=== PATIENT | male | born 1960 | race African-American/Black ===

== ENCOUNTER 2025-06-17 08:32 | Inpatient (IN) | payer OTHER ==
[2025-06-17] MEDS ORDERED: Nitroglycerin 2% Ointment 1 INCH/1 GM Packet ONE (08:54)
[2025-06-17] MEDS ORDERED: Magnesium 2 GM/50 ML BAG (IN WATER) ONE (08:54)
[2025-06-17] MEDS ORDERED: Aspirin Chewable 81 MG TAB ONE (08:54)
[2025-06-17 09:04] LABS: #Basophils 0.05 10x3/uL (0.0-0.2); #Eosinophils 0.23 10x3/uL (0.0-0.7); #Monocytes 0.69 10x3/uL (0.11-0.59); #Neutrophils 2.72 10x3/uL (1.40-6.50); %Basophils 0.8 % (0.0-1.0); %Eosinophils 3.5 % (0.0-10.0); %Lymphocytes 43.6 % (21.0-51.0); %Monocytes 10.5 % (0.0-10.0); %Neutrophils 41.4 % (42.0-75.0); Hematocrit 39.0 % (42.0-52.0); Hemoglobin 12.6 g/dL (14.0-18.0); Mean Corpuscular Hemoglobin 29.3 pg (27.0-31.0); Mean Corpuscular Volume 90.7 fL (78.0-98.0); Platelet Count 206 10x3/uL (130-400); Red Blood Cell (RBC) Count 4.30 mill/uL (4.70-6.10); White Blood Cell (WBC) Count 6.56 10x3/uL (4.8-10.8)
[2025-06-17 09:18] LABS: ALT (SGPT) 15 U/L (Less than 45); AST (SGOT) 31 U/L (11-34); Albumin 3.4 g/dL (3.1-4.5); Alkaline Phosphatase 86 U/L (40-110); Anion Gap 12 mmol/L (10-20); BUN (Urea Nitrogen) 14 mg/dL (8.4-25.7); Bilirubin, Total 0.3 mg/dL (0.3-1.2); Calc. Creatinine Clearance 0 mL/min (70-130); Calcium 8.6 mg/dL (7.8-10.44); Carbon Dioxide 28 mmol/L (23-31); Chloride 109 mmol/L (98-107); Globulin 4.2 g/dL (2.4-3.5); Glucose 125 mg/dL (80-115); Potassium 2.9 mmol/L (3.5-5.1); Sodium 146 mmol/L (136-145)
[2025-06-17 09:19] LABS: Acetaminophen Less than 10 mcg/mL (Less than 10); Lipase 27 U/L (8-78); Magnesium 1.7 mg/dL (1.6-2.6); Salicylate Less than 8.0 mg/dL (Less than 8.0)
[2025-06-17 09:59] LABS: Cocaine Metabolite Screen Negative (Negative); THC/Cannabinoid Screen Negative (Negative); Tricyclic Screen Negative (Negative)
[2025-06-17] MEDS ORDERED: Potassium Chloride 20 MEQ (100 mL) BAG ONE (10:21)
[2025-06-17] MEDS ORDERED: Iopamidol-370 76% 500 ML MDV (1 ML CHARGE) ONE (11:22)
[2025-06-17] MEDS ORDERED: Benzonatate 100 MG CAP PO PRN (12:29)
[2025-06-17] MEDS ORDERED: Acetaminophen 500 MG TAB PO PRN (12:29)
[2025-06-17] MEDS ORDERED: Ondansetron PF 4 MG/2 ML Vial IVP PRN (12:29)
[2025-06-17] MEDS ORDERED: Nitroglycerin 0.4 MG TAB (25 Tab Bottle) SL PRN (12:29)
[2025-06-17] MEDS ORDERED: Dextrose 50% Abboject 50 ML SYRINGE SLOW IVP PRN (12:45)
[2025-06-17] MEDS ORDERED: Glucagon 1 MG/ML KIT IM PRN (12:45)
[2025-06-17 14:13] VITALS: BMI 28.0
[2025-06-17] MEDS: dilTIAZem 30 MG TAB PO SCH ×2 (14:41→18:12)
[2025-06-17] MEDS: Famotidine 20 MG TAB PO SCH (21:12)
[2025-06-18 04:26] LABS: #Basophils 0.05 10x3/uL (0.0-0.2); #Eosinophils 0.26 10x3/uL (0.0-0.7); #Monocytes 0.75 10x3/uL (0.11-0.59); #Neutrophils 3.20 10x3/uL (1.40-6.50); %Basophils 0.8 % (0.0-1.0); %Eosinophils 3.9 % (0.0-10.0); %Lymphocytes 35.9 % (21.0-51.0); %Monocytes 11.3 % (0.0-10.0); %Neutrophils 47.9 % (42.0-75.0); Hematocrit 41.7 % (42.0-52.0); Hemoglobin 13.5 g/dL (14.0-18.0); Mean Corpuscular Hemoglobin 29.4 pg (27.0-31.0); Mean Corpuscular Volume 90.8 fL (78.0-98.0); Platelet Count 211 10x3/uL (130-400); Red Blood Cell (RBC) Count 4.59 mill/uL (4.70-6.10); White Blood Cell (WBC) Count 6.66 10x3/uL (4.8-10.8)
[2025-06-18 04:59] LABS: ALT (SGPT) 14 U/L (Less than 45); AST (SGOT) 28 U/L (11-34); Albumin 3.5 g/dL (3.1-4.5); Alkaline Phosphatase 91 U/L (40-110); Anion Gap 12 mmol/L (10-20); BUN (Urea Nitrogen) 10 mg/dL (8.4-25.7); Bilirubin, Total 0.5 mg/dL (0.3-1.2); Calc. Creatinine Clearance 83 mL/min (70-130); Calcium 8.8 mg/dL (7.8-10.44); Carbon Dioxide 26 mmol/L (23-31); Chloride 108 mmol/L (98-107); Globulin 4.1 g/dL (2.4-3.5); Glucose 132 mg/dL (80-115); Potassium 2.9 mmol/L (3.5-5.1); Sodium 143 mmol/L (136-145)
[2025-06-18] MEDS ORDERED: Electrolyte Replacement Protocol 1 EACH FS ONE (08:41)
[2025-06-18] MEDS: Losartan 25 MG TAB PO SCH (15:23)
[2025-06-19 04:48] LABS: Magnesium 1.9 mg/dL (1.6-2.6); Potassium 3.3 mmol/L (3.5-5.1)
[2025-06-19] MEDS: Magnesium 2 GM/50 ML(in water) 2 GM in Premix 1 BAG IVPB SCH (09:25)
[2025-06-19] MEDS: glipiZIDE 10 MG TAB PO SCH (09:26)
[2025-06-19] MEDS: Pantoprazole 40 MG DR.TAB PO SCH (09:27)
[2025-06-19] MEDS: Losartan 25 MG TAB PO SCH (09:28)
[2025-06-19] MEDS: Metoprolol Succinate XL 50 MG ER.TAB PO SCH (09:31)
[2025-06-20 05:14] LABS: Hematocrit 39.9 % (42.0-52.0); Hemoglobin 12.7 g/dL (14.0-18.0); Mean Corpuscular Hemoglobin 28.9 pg (27.0-31.0); Mean Corpuscular Volume 90.7 fL (78.0-98.0); Platelet Count 198 10x3/uL (130-400); Red Blood Cell (RBC) Count 4.40 mill/uL (4.70-6.10); White Blood Cell (WBC) Count 6.80 10x3/uL (4.8-10.8)
[2025-06-20 05:19] LABS: Anion Gap 11 mmol/L (10-20); BUN (Urea Nitrogen) 22 mg/dL (8.4-25.7); Calc. Creatinine Clearance 64 mL/min (70-130); Calcium 8.9 mg/dL (7.8-10.44); Carbon Dioxide 27 mmol/L (23-31); Chloride 112 mmol/L (98-107); Glucose 117 mg/dL (80-115); Potassium 3.8 mmol/L (3.5-5.1); Sodium 146 mmol/L (136-145)
[2025-06-20 05:45] LABS: Platelet Adequacy Comment Platelets Normal; RBC Morphology Within Normal Limits; Smudge Cells 13.0 %
[2025-06-20 13:12] LABS: %CD4 (Helper/Inducer) 40.5 % (30.8-58.5); Absolute CD4 851 /uL (359-1519); Lymphocytes/Gated Cell Count 2.1 x10E3/uL (0.7-3.1); Total Lymphocyte 37 % (Not Estab.); WBC Total Count 5.7 x10E3/uL (3.4-10.8)
[2025-06-21 04:18] LABS: #Basophils 0.07 10x3/uL (0.0-0.2); #Eosinophils 0.33 10x3/uL (0.0-0.7); #Monocytes 0.56 10x3/uL (0.11-0.59); #Neutrophils 3.00 10x3/uL (1.40-6.50); %Basophils 1.1 % (0.0-1.0); %Eosinophils 5.3 % (0.0-10.0); %Lymphocytes 36.2 % (21.0-51.0); %Monocytes 9.0 % (0.0-10.0); %Neutrophils 48.2 % (42.0-75.0); Hematocrit 39.6 % (42.0-52.0); Hemoglobin 12.4 g/dL (14.0-18.0); Mean Corpuscular Hemoglobin 29.2 pg (27.0-31.0); Mean Corpuscular Volume 93.2 fL (78.0-98.0); Platelet Count 168 10x3/uL (130-400); Red Blood Cell (RBC) Count 4.25 mill/uL (4.70-6.10); White Blood Cell (WBC) Count 6.22 10x3/uL (4.8-10.8)
[2025-06-21 04:53] LABS: Anion Gap 14 mmol/L (10-20); BUN (Urea Nitrogen) 22 mg/dL (8.4-25.7); Calc. Creatinine Clearance 73 mL/min (70-130); Calcium 9.0 mg/dL (7.8-10.44); Carbon Dioxide 21 mmol/L (23-31); Chloride 113 mmol/L (98-107); Glucose 108 mg/dL (80-115); Potassium 4.0 mmol/L (3.5-5.1); Sodium 144 mmol/L (136-145)
[2025-06-21] MEDS: Spironolactone 25 MG TAB PO SCH ×3 (10:32→16:54)
[2025-06-21] MEDS: Losartan 25 MG TAB PO SCH (10:32)
[2025-06-21] MEDS ORDERED: Spironolactone 25 MG TAB PO SCH (17:00)
[2025-06-22 04:26] LABS: #Basophils 0.05 10x3/uL (0.0-0.2); #Eosinophils 0.29 10x3/uL (0.0-0.7); #Monocytes 0.81 10x3/uL (0.11-0.59); #Neutrophils 3.12 10x3/uL (1.40-6.50); %Basophils 0.7 % (0.0-1.0); %Eosinophils 4.2 % (0.0-10.0); %Lymphocytes 37.6 % (21.0-51.0); %Monocytes 11.8 % (0.0-10.0); %Neutrophils 45.4 % (42.0-75.0); Hematocrit 36.0 % (42.0-52.0); Hemoglobin 11.6 g/dL (14.0-18.0); Mean Corpuscular Hemoglobin 29.1 pg (27.0-31.0); Mean Corpuscular Volume 90.5 fL (78.0-98.0); Platelet Count 173 10x3/uL (130-400); Red Blood Cell (RBC) Count 3.98 mill/uL (4.70-6.10); White Blood Cell (WBC) Count 6.88 10x3/uL (4.8-10.8)
[2025-06-22 04:43] LABS: Anion Gap 11 mmol/L (10-20); BUN (Urea Nitrogen) 22 mg/dL (8.4-25.7); Calc. Creatinine Clearance 76 mL/min (70-130); Calcium 8.6 mg/dL (7.8-10.44); Carbon Dioxide 24 mmol/L (23-31); Chloride 110 mmol/L (98-107); Glucose 95 mg/dL (80-115); Potassium 3.8 mmol/L (3.5-5.1); Sodium 141 mmol/L (136-145)
[2025-06-22] MEDS ORDERED: Spironolactone 25 MG TAB PO SCH (08:00)
[2025-06-22] MEDS: hydrALAZINE 20 MG/ML VIAL SLOW IVP PRN (20:45)
[2025-06-22 21:14] LABS: HIV-1 Quantitative, RNA PCR 160.0 copies/mL (.); LOG10 HIV-1 RNA 2.204 (.)
[2025-06-23 10:25] VITALS: BP 122/75; TEMP 98
== END 2025-06-23 11:50 | DRG 308 ==
LOC: ERS 08:32 → EEVIPCON 11:49 → 2NO 11:49
PROVIDERS: ADMIT Family Medicine; ATTEND Internal Medicine
DX: I48.91 Unspecified atrial fibrillation (principal); I50.21 Acute systolic (congestive) heart failure; I31.39 Other pericardial effusion (noninflammatory); N17.9 Acute kidney failure, unspecified; I11.0 Hypertensive heart disease with heart failure; E11.9 Type 2 diabetes mellitus without complications; I42.8 Other cardiomyopathies; Z21 Asymptomatic human immunodeficiency virus [HIV] infection status; K21.9 Gastro-esophageal reflux disease without esophagitis; M19.90 Unspecified osteoarthritis, unspecified site; Z96.659 Presence of unspecified artificial knee joint; E87.6 Hypokalemia; I49.3 Ventricular premature depolarization; I49.1 Atrial premature depolarization; Z98.890 Other specified postprocedural states; Z87.891 Personal history of nicotine dependence; Z79.899 Other long term (current) drug therapy; Z79.84 Long term (current) use of oral hypoglycemic drugs
CPT/HCPCS: 36415; 36416; 71045; 71275; 78452; 80048; 80053; 80306; 80307; 83036; 83690; 83735; 83880; 84132; 84443; 84484; 85025; 86361; 87536; 93005; 93010; 93017; 93306; 96365; 96375; A9502; J0360; J1815; J2785; J3475; J3480; Q9967